=== PATIENT | female | born 1960 | race Caucasian/White ===

== ENCOUNTER → 2025-03-22 12:01 | Outpatient (BNVA) | payer MEDICARE, SELFPAY | PROVIDERS: Visit Provider Clinical Nurse Specialist Adult Health | DX: I10 Essential (primary) hypertension (principal) | CPT/HCPCS: 80053; 80061; 84443; 85025 ==

== ENCOUNTER 2025-03-29 10:04 | Outpatient (CLI) | payer MEDICARE, SELFPAY ==
--- NOTE | 2025-03-29 10:30 | US_ITS ---
WS: [id number] ULTRASOUND THYROID TECHNIQUE: Ultrasound of the thyroid. CLINICAL INFORMATION: Z86.39 - Personal history of other endocrine, nutritional... COMPARISON: None. FINDINGS: Thyroid: Right and left thyroid lobes are normal in size and echotexture. No thyroid nodules are present. Right thyroid lobe: 4.2 cm x 1.7 cm x 1.5 cm Tiny colloid cyst inferior RIGHT thyroid Left thyroid lobe: 4.3 cm x 1.3 cm x 1.1 cm. Small hypoechoic nodule inferior LEFT thyroid measuring 7 x 7 x 7 mm probably complex cystic. Isthmus: 0.3 mm. Tiny nodule in the isthmus measuring 7 x 3 mm appears complex cystic Cervical lymphadenopathy: None. US/US thyroid [id number] IMPRESSION: No suspicious thyroid nodules. A few subcentimeter colloid cysts and small comp day cystic nodules
== END 2025-03-29 10:05 | disposition home or self-care (01) ==
PROVIDERS: PCP Clinical Nurse Specialist Adult Health; Visit Provider Clinical Nurse Specialist Adult Health
DX: Z86.39 Personal history of other endocrine, nutritional and metabolic disease (principal); E04.2 Nontoxic multinodular goiter
CPT/HCPCS: 76536

== ENCOUNTER → 2025-03-31 11:57 | Outpatient (BNVA) | payer MEDICARE, SELFPAY | PROVIDERS: PCP Clinical Nurse Specialist Adult Health; Visit Provider Clinical Nurse Specialist Adult Health | DX: R30.0 Dysuria (principal) | CPT/HCPCS: 81000 ==